=== PATIENT | female | born 1945 | race Caucasian/White ===

== ENCOUNTER → 2016-11-01 | Outpatient (CLI) | payer MEDICARE, BC | LOC: MAMMO 14:34 | DX: Z12.31 Encounter for screening mammogram for malignant neoplasm of breast (principal); R92.0 Mammographic microcalcification found on diagnostic imaging of breast | CPT/HCPCS: G0202 ==

== ENCOUNTER → 2016-12-12 | Day surgery (SDC) | payer MEDICARE, BC | LOC: MSO 08:17 | DX: Z12.11 Encounter for screening for malignant neoplasm of colon (principal); D12.5 Benign neoplasm of sigmoid colon; D12.2 Benign neoplasm of ascending colon; K57.30 Diverticulosis of large intestine without perforation or abscess without bleeding; Z87.19 Personal history of other diseases of the digestive system | CPT/HCPCS: 00810; J3010; J7120 ==

== ENCOUNTER → 2017-12-11 | Outpatient (CLI) | payer MEDICARE, BC | LOC: RAD 15:38 | DX: M17.11 Unilateral primary osteoarthritis, right knee (principal); M71.21 Synovial cyst of popliteal space [Baker], right knee; M25.461 Effusion, right knee ==

== ENCOUNTER → 2017-12-20 | Outpatient (CLI) | payer MEDICARE, BC | LOC: MAMMO 14:20 | DX: Z12.31 Encounter for screening mammogram for malignant neoplasm of breast (principal) ==

== ENCOUNTER → 2019-03-04 | Outpatient (CLI) | payer MEDICARE, BC | LOC: PT 08:54 | DX: Z47.1 Aftercare following joint replacement surgery (principal); Z96.651 Presence of right artificial knee joint ==

== ENCOUNTER → 2019-03-18 | Outpatient (CLI) | payer MEDICARE, BC | LOC: VAS 03-14 16:00 → RAD 03-14 16:00 → VAS 16:43 | DX: I07.1 Rheumatic tricuspid insufficiency (principal); I37.1 Nonrheumatic pulmonary valve insufficiency; I35.8 Other nonrheumatic aortic valve disorders ==

== ENCOUNTER 2019-05-11 16:17 | Observation (INO) | payer MEDICARE, BC ==
[~2019-05-11] VITALS: Ht 157.5 cm; Wt 61.3 kg
[2019-05-11] MEDS ORDERED: OXYCODONE5 M1 PO (16:27)
[2019-05-11] MEDS ORDERED: ASPIR LOW81 MG PO (16:28)
[2019-05-11] MEDS ORDERED: TYLENOL EXTRA500 M2 PO (16:28)
[2019-05-11] MEDS ORDERED: NAPROXEN500 MG PO (16:28)
[2019-05-11 17:42] LABS: HEMATOCRIT 38.3 % (37.0-47.0); HEMOGLOBIN 12.6 g/dL (12.5-16.0); MEAN CELL VOLUME 98 fl (78-100); MEAN CORPUSCULAR HEMOGLOBIN 32 pg (27-31); MEAN CORPUSCULAR HGB CONC 33 g/dL (33-37); MEAN PLATELET VOLUME 9.5 fl (7.4-10.4); PLATELET COUNT 206 K/mm3 (130-400); RED BLOOD COUNT 3.92 M/mm3 (4.10-5.30); RED CELL DISTRIBUTION WIDTH 13.3 % (11.5-14.5); WHITE BLOOD COUNT 10.1 K/mm3 (4.8-10.8)
[2019-05-11 17:52] LABS: ALBUMIN 3.7 g/dL (3.4-4.8)
[2019-05-11 17:53] LABS: SODIUM 139 mmol/L (136-145)
[2019-05-11 17:54] LABS: CALCIUM 9.2 mg/dL (8.3-10.5)
[2019-05-11 17:55] LABS: GLUCOSE 128 mg/dL (65-105); TOTAL PROTEIN 6.3 g/dL (6.2-8.1)
[2019-05-11 17:56] LABS: CARBON DIOXIDE 21 mmol/L (23-31)
[2019-05-11 17:57] LABS: TOTAL BILIRUBIN 0.5 mg/dL (0.2-1.2)
[2019-05-11 18:00] LABS: AST-SGOT 26 U/L (5-34)
[2019-05-11 18:01] LABS: ALT/SGPT 14 U/L (0-55)
[2019-05-11 18:03] LABS: LYMPHOCYTE 9 % (20-51); MONOCYTE 7 % (3-10); NEUTROPHILS 84 % (42-75)
[2019-05-11 18:08] LABS: TROPONIN-I < 0.03 ng/mL (<0.030)
[2019-05-11 21:39] LABS: PH-URINE 6.5 (5.0 - 8.0); URINE APPEARANCE CLEAR; URINE BILIRUBIN NEGATIVE (NEGATIVE); URINE BLOOD NEGATIVE (NEGATIVE); URINE COLOR YELLOW; URINE GLUCOSE NEGATIVE (NEGATIVE); URINE KETONE 2+ (NEGATIVE); URINE LEUKOCYTE ESTERASE NEGATIVE (NEGATIVE); URINE NITRATE NEGATIVE (NEGATIVE); URINE PROTEIN(semi-quant) TRACE mg/dL (NEGATIVE); URINE UROBILINOGEN NORMAL (NORMAL)
[2019-05-11 22:15] VITALS: BP 136/78
[2019-05-11 22:35] VITALS: BP 136/78
[2019-05-12 01:43] VITALS: BP 143/75
[2019-05-12 06:03] VITALS: BP 151/74
[2019-05-12 09:28] LABS: EOS # 0.1 (0.04-0.40); EOS % 1.3 % (1.0-5.0); HEMATOCRIT 35.6 % (37.0-47.0); HEMOGLOBIN 11.4 g/dL (12.5-16.0); LYMPH# 1.6 (1.50-4.00); MEAN CELL VOLUME 98 fl (78-100); MEAN CORPUSCULAR HEMOGLOBIN 31 pg (27-31); MEAN CORPUSCULAR HGB CONC 32 g/dL (33-37); MEAN PLATELET VOLUME 9.5 fl (7.4-10.4); MONO # 0.7 (0.20-0.80); NEU # 5.2 (1.40-6.50); PLATELET COUNT 240 K/mm3 (130-400); RED BLOOD COUNT 3.63 M/mm3 (4.10-5.30); RED CELL DISTRIBUTION WIDTH 13.5 % (11.5-14.5); WHITE BLOOD COUNT 7.6 K/mm3 (4.8-10.8)
[2019-05-12 09:48] VITALS: BP 137/76
[2019-05-12 14:07] VITALS: BP 133/70
[2019-05-12] MEDS ORDERED: MECLIZINE PO (15:28)
[2019-05-12] MEDS ORDERED: Patient's Own Medica PO (15:28)
[2019-05-12 15:55] VITALS: BP 172/78
[2019-05-12 18:07] VITALS: BP 134/68
== END 2019-05-12 18:50 | disposition home or self-care (01) ==
LOC: ED 16:17 → MED/SURG 22:15
PROVIDERS: ADMIT Family Medicine
DX: R42 Dizziness and giddiness (principal); R11.10 Vomiting, unspecified; Z96.651 Presence of right artificial knee joint; I45.10 Unspecified right bundle-branch block; Z79.899 Other long term (current) drug therapy; Z79.82 Long term (current) use of aspirin
CPT/HCPCS: G0378; J2060; J7030

== ENCOUNTER 2019-06-28 10:00 | Outpatient (RCR) | payer MEDICARE, BC ==
[~2019-06-28 10:00] MED LIST: ASPIR LOW81 MG PO; MECLIZINE PO; NAPROXEN500 MG PO; OXYCODONE5 M1 PO; Patient's Own Medica PO; TYLENOL EXTRA500 M2 PO
== END 2019-08-15 | disposition still patient (30) ==
LOC: PT
DX: Z47.1 Aftercare following joint replacement surgery (principal); Z96.651 Presence of right artificial knee joint

== ENCOUNTER → 2019-09-17 | Outpatient (CLI) | payer MEDICARE, BC | LOC: LAB 10:02 | DX: R91.1 Solitary pulmonary nodule (principal) | CPT/HCPCS: Q9967 ==

== ENCOUNTER 2019-12-04 10:00 | Outpatient (RCR) | payer MEDICARE, BC | END 2019-12-04 10:30 | disposition still patient (30) | LOC: PT 10:00 | DX: Z47.1 Aftercare following joint replacement surgery (principal); Z96.652 Presence of left artificial knee joint ==

== ENCOUNTER → 2020-06-24 | Outpatient (CLI) | payer MEDICARE, BC | LOC: MAMMO 09:47 | DX: Z12.31 Encounter for screening mammogram for malignant neoplasm of breast (principal); N63.32 Unspecified lump in axillary tail of the left breast ==

== ENCOUNTER → 2020-07-02 | Outpatient (CLI) | payer MEDICARE, BC | LOC: RAD 11:45 | DX: N60.02 Solitary cyst of left breast (principal) ==

== ENCOUNTER → 2021-07-06 | Outpatient (CLI) | payer MEDICARE, BC | LOC: MAMMO 13:06 | DX: Z13.820 Encounter for screening for osteoporosis (principal); M85.88 Other specified disorders of bone density and structure, other site; Z78.0 Asymptomatic menopausal state ==

== ENCOUNTER → 2021-07-06 | Outpatient (CLI) | payer MEDICARE, BC | LOC: MAMMO 13:00 | DX: Z12.31 Encounter for screening mammogram for malignant neoplasm of breast (principal); R22.9 Localized swelling, mass and lump, unspecified ==

== ENCOUNTER → 2023-03-10 | Outpatient (CLI) | payer MEDICARE, BC | LOC: RAD 08:46 | DX: N32.89 Other specified disorders of bladder (principal) | CPT/HCPCS: Q9967 ==

== ENCOUNTER → 2023-12-21 | Outpatient (CLI) | payer MEDICARE, BC | LOC: MAMMO 13:30 | DX: Z12.31 Encounter for screening mammogram for malignant neoplasm of breast (principal) ==

== ENCOUNTER → 2024-01-01 | Day surgery (SDC) | payer MEDICARE, BC | LOC: MSO 07:29 | DX: Z12.11 Encounter for screening for malignant neoplasm of colon (principal); D12.2 Benign neoplasm of ascending colon; Z83.719 Family history of colon polyps, unspecified; Z85.828 Personal history of other malignant neoplasm of skin | CPT/HCPCS: 00811; J2704; J7120 ==

== ENCOUNTER → 2024-04-16 | Outpatient (CLI) | payer MEDICARE, BC | LOC: MAMMO 14:30 → RAD 14:34 | DX: Z13.820 Encounter for screening for osteoporosis (principal); Z12.31 Encounter for screening mammogram for malignant neoplasm of breast; M85.89 Other specified disorders of bone density and structure, multiple sites; Z78.0 Asymptomatic menopausal state ==